=== PATIENT | male | born 1955 | race African-American/Black ===

== ENCOUNTER 2021-10-15 08:46 | Outpatient (CLI) | payer MEDICARE, MEDICAID ==
[2021-10-15] MEDS ORDERED: Magnevist 469MG/ML 20 ML VIAL ONE (14:51)
== END 2021-10-15 08:47 | disposition home or self-care (01) ==
LOC: CSHMRI 08:46
PROVIDERS: ATTEND Neurological Surgery
DX: D49.7 Neoplasm of unspecified behavior of endocrine glands and other parts of nervous system (principal)
CPT/HCPCS: 70553; A9579

== ENCOUNTER 2022-01-13 14:00 | Outpatient (CLI) | payer MEDICARE, MEDICAID ==
[~2022-01-13 14:00] MED LIST: Magnevist 469MG/ML 20 ML VIAL ONE
== END 2022-01-13 14:01 | disposition home or self-care (01) ==
LOC: CSHMRI 14:00
PROVIDERS: ATTEND Radiology Radiation Oncology
DX: C71.2 Malignant neoplasm of temporal lobe (principal); G93.89 Other specified disorders of brain; G91.9 Hydrocephalus, unspecified; G31.9 Degenerative disease of nervous system, unspecified
CPT/HCPCS: 70553

== ENCOUNTER 2023-03-10 08:30 | Outpatient (CLI) | payer MEDICARE | END 2023-03-10 08:31 | disposition home or self-care (01) | LOC: CSHMRI 08:30 | PROVIDERS: ATTEND Radiology Radiation Oncology | DX: D49.6 Neoplasm of unspecified behavior of brain (principal); Z98.890 Other specified postprocedural states; Z92.3 Personal history of irradiation | CPT/HCPCS: 70553 ==